=== PATIENT | female | born 2000 | race Caucasian/White ===

== ENCOUNTER 2022-09-02 21:00 | Emergency (ER) | payer OTHER, SELFPAY ==
[2022-09-02 21:01] VITALS: BP 119/92; PULSE 84; RESP 16; TEMP 35.9; O2SAT 99; BMI 24.2
[2022-09-02 22:28] VITALS: RESP 16
--- NOTE | 2022-09-02 23:19 | EX.ED.GENINJ ---
HPI History of Present Illness Chief Complaint: Bite Narrative Narrative: Presents with 2 small wounds on the right ankle. She is concerned that she might have been bitten by a bat. She has not seen a bat or been bitten by that that she knows of. She states that they have been here for couple of days. She does not feel if there is any other reasonable explanation why she would have to superficial punctate dots on her right ankle. She denies any symptoms. She has no medical problems. She states not allergic to anything. Immunizations are up-to-date. She states she just does not want to take the chance of not being immunized for rabies. PFSH PFS Medical History no medical history Home Medications etonogestrel 68 mg subdermal implant (Nexplanon) 68 mg subdermal QMONTH 09/02/22 [History Last Taken Unknown] Allergy/AdvReac Type Severity Reaction Status Date / Time No Known Allergies Allergy Verified 09/02/22 21:01 Surgical History no surgical history Social History Smoking Status: Never smoker ROS ROS ED Constitutional Constitutional ED: Denies chills or fever(s) Eyes Eyes: Denies change in vision ENT ENT ED: Denies rhinorrhea or sore throat Cardiovascular Cardiovascular: Denies chest pain or palpitations Respiratory/Chest Respiratory/Chest: Denies cough or dyspnea Gastrointestinal Gastrointestinal: Denies abdominal pain, constipation or diarrhea Genitourinary Genitourinary ED: Denies dysuria or hematuria Musculoskeletal Musculoskeletal: Denies arthralgias or back pain Integumentary Reports other Details: 2 superficial abrasions to the medial right ; Denies abscess or Abrasions Neurologic Neurologic: Denies headache(s) Psychiatric Psychiatric: Denies anxiety or depression EXAM Physical Exam Const Vital Signs: 09/02/22 21:01 09/02/22 22:28 Temperature 96.7 F L Temperature Source Temporal Pulse Rate 84 Respiratory Rate 16 16 Blood Pressure 119/92 H Blood Pressure Mean 101 Pulse Ox 99 Oxygen Delivery Method Room Air Positive well nourished HEENT atraumatic Eyes PERRL and EOMs intact bilaterally Resp normal respiratory effort Cardio regular rhythm Rate: regular rate GI normal to inspection, nondistended, normoactive bowel sounds Extremity normal to inspection Neuro oriented x3 and CN's II-XII intact bilaterally Psych mental status grossly normal Skin Skin Narrative: 2 punctate areas on the medial malleolus of superficial abrasion/puncture type wound. There is no surrounding erythema or edema. No lymphangitic streaking. No evidence of cellulitis. No tenderness to palpation. MDM MDM MDM Narrative Medical decision making narrative: Patient presenting requesting rabies vaccine because she is concerned she might of come in contact with the bat because she lives at the [facility]. She has not seen a bat nor noted any bat bites in her present. She does not feel there is any other reasonable explanation for the 2 wounds on her right ankle. She is concerned that she needs to be vaccinated. I went over the risk benefit with her. She still request vaccine. She will be given the RIG and rabies vaccination. She will be given discharge instructions to ensure she follows up for further treatment. Impression: 1. Puncture type wounds right medial malleolus 2. Rabies vaccination Lab Data Attestation: I reviewed the patient's lab results. Discharge Plan Triage Chief Complaint: Bite ED Provider: Farshad Rodriguez Dx/Rx/DC Orders Prescriptions: No Action Nexplanon 68 mg Implant 68 mg SUBDERMAL QMONTH Primary Care Provider: Red Healy,Out of Referrals: Red Healy,Out of [Primary Care Provider] -
[2022-09-02] MEDS: Rabies Vaccine,Human Diploid 2.5 UNITS Vial IM (23:46)
[2022-09-02] MEDS: Rabies Immune Globulin/PF 300 UNIT/ML, 5 ML VIAL 1290 UNIT IM (23:49)
[2022-09-03 00:20] VITALS: RESP 16
== END 2022-09-03 00:21 | disposition home or self-care (01) ==
PROVIDERS: Emergency Provider Student in an Organized Health Care Education/Training Program; Visit Provider Student in an Organized Health Care Education/Training Program
DX: S91.031A Puncture wound without foreign body, right ankle, initial encounter (principal); X58.XXXA Exposure to other specified factors, initial encounter; Z20.3 Contact with and (suspected) exposure to rabies
CPT/HCPCS: 90375; 90675; 96372; 99282

== ENCOUNTER 2022-09-05 14:15 | Outpatient (CLI) | payer OTHER, SELFPAY ==
[2022-09-05 14:16] VITALS: BP 121/68
[2022-09-05 14:17] VITALS: BP 121/68; PULSE 74; RESP 14; TEMP 35.9; O2SAT 97; BMI 24.1
[2022-09-05] MEDS: Rabies Vaccine,Human Diploid 2.5 UNITS Vial IM (14:38)
== END 2022-09-05 15:26 | disposition home or self-care (01) ==
DX: Z23 Encounter for immunization (principal)
CPT/HCPCS: 90675; 96372

== ENCOUNTER 2022-09-09 14:41 | Outpatient (CLI) | payer OTHER, SELFPAY ==
[2022-09-09 15:02] VITALS: BP 108/68; PULSE 54; RESP 18; TEMP 36.6; O2SAT 98
[2022-09-09] MEDS: Rabies Vaccine,Human Diploid 2.5 UNITS Vial IM (15:05)
== END 2022-09-09 15:20 | disposition home or self-care (01) ==
PROVIDERS: PCP Pediatrics; Visit Provider Emergency Medicine
DX: Z23 Encounter for immunization (principal)
CPT/HCPCS: 90471; 90675

== ENCOUNTER 2022-09-16 14:50 | Outpatient (CLI) | payer OTHER, SELFPAY ==
[2022-09-16 14:51] VITALS: BP 110/67; PULSE 55; RESP 15; TEMP 36.6; O2SAT 100; BMI 24.0
[2022-09-16] MEDS: Rabies Vaccine,Human Diploid 2.5 UNITS Vial IM (16:20)
== END 2022-09-16 16:44 | disposition home or self-care (01) ==
LOC: ED 09-17 20:34
PROVIDERS: PCP Pediatrics; Visit Provider Emergency Medicine
DX: Z23 Encounter for immunization (principal)
CPT/HCPCS: 90675; 96372